=== PATIENT | female | born 1985 | race Caucasian/White ===

== ENCOUNTER 2016-04-23 12:13 | Emergency (ER) | payer SELFPAY ==
[~2016-04-23] VITALS: Ht 160 cm; Wt 56.6 kg
[~2016-04-23 12:13] MED LIST: CLON-365 PO; FLUO40CA9 PO
[2016-04-23] MEDS ORDERED: IBUPROFEN 200 MG TABLET ONE (14:57)
[2016-04-23] MEDS ORDERED: IBUPROFEN 200 MG TABLET PO ONE (15:30)
[2016-04-23 16:21] VITALS: BP 116/77
== END 2016-04-23 16:45 | disposition home or self-care (01) ==
LOC: ED 13:56
DX: H10.33 Unspecified acute conjunctivitis, bilateral (principal); N30.00 Acute cystitis without hematuria; K05.10 Chronic gingivitis, plaque induced; K02.9 Dental caries, unspecified
CPT/HCPCS: 81001; 87077; 87086; 87186; 99284

== ENCOUNTER 2016-06-15 15:55 | Emergency (ER) | payer SELFPAY ==
[~2016-06-15] VITALS: Ht 160 cm; Wt 58.7 kg
[2016-06-15] MEDS ORDERED: SODIUM CHLORIDE 0.9% 1,000ML IVBOLUS ONE (16:30)
[2016-06-15] MEDS ORDERED: SODIUM CHLORIDE FLUSH 10ML SYR IVF ONE (16:30)
[2016-06-15 16:57] LABS: BLOOD UREA NITROGEN 11 mg/dL (7-18)
[2016-06-15] MEDS ORDERED: ACETAMINOPHEN 500 MG TABLET PO ONE (19:30)
[2016-06-15] MEDS ORDERED: ACETAMINOPHEN 500 MG TABLET ONE (19:39)
[2016-06-15 21:18] VITALS: BP 112/74
[2016-06-15] MEDS ORDERED: SULFAMETH./TRIMETHOPRIM DS 800MG/160MG TABLET ONE (22:43)
[2016-06-15] MEDS ORDERED: SULFAMETH./TRIMETHOPRIM DS 800MG/160MG TABLET PO ONE (23:00)
== END 2016-06-15 22:55 | disposition home or self-care (01) ==
LOC: ED 21:27
DX: M54.9 Dorsalgia, unspecified (principal); N30.90 Cystitis, unspecified without hematuria; Z88.0 Allergy status to penicillin; Z88.1 Allergy status to other antibiotic agents
CPT/HCPCS: 36415; 80048; 81001; 82040; 84703; 85025; 87086; 93005

== ENCOUNTER 2016-09-11 16:08 | Emergency (ER) | payer OTHER ==
[~2016-09-11] VITALS: Ht 170.2 cm; Wt 68.4 kg
[2016-09-11 17:16] VITALS: BP 106/72
[2016-09-11] MEDS ORDERED: SODIUM CHLORIDE 0.9% 1,000ML IVBOLUS ONE (17:30)
[2016-09-11 17:59] LABS: BLOOD UREA NITROGEN 13 mg/dL (7-18)
== END 2016-09-11 18:54 | disposition home or self-care (01) ==
LOC: ED 18:29
DX: F41.1 Generalized anxiety disorder (principal); F15.10 Other stimulant abuse, uncomplicated; F17.210 Nicotine dependence, cigarettes, uncomplicated; Z88.0 Allergy status to penicillin; Z88.1 Allergy status to other antibiotic agents
CPT/HCPCS: 36415; 80048; 82040; 99284; J7030

== ENCOUNTER 2017-06-09 06:26 | Emergency (ER) | payer SELFPAY ==
[~2017-06-09] VITALS: Ht 160 cm; Wt 66.9 kg
[2017-06-09 06:28] VITALS: BP 114/74
[2017-06-09] MEDS ORDERED: DEXAMETHASONE 4 MG TABLET ONE (07:20)
[2017-06-09] MEDS ORDERED: DEXAMETHASONE 4 MG TABLET PO ONE (07:30)
== END 2017-06-09 07:39 | disposition home or self-care (01) ==
LOC: ED 07:33
DX: J02.0 Streptococcal pharyngitis (principal); F32.9 Major depressive disorder, single episode, unspecified; F43.10 Post-traumatic stress disorder, unspecified
CPT/HCPCS: 99283

== ENCOUNTER 2018-09-07 00:07 | Emergency (ER) | payer SELFPAY ==
[~2018-09-07] VITALS: Ht 160 cm; Wt 75.0 kg
[~2018-09-07 00:07] MED LIST changes: -CLON-365 PO; +CLON1TAB11 PO
[2018-09-07 00:17] VITALS: BP 115/77
== END 2018-09-07 00:50 | disposition home or self-care (01) ==
LOC: ED 00:39
DX: F15.10 Other stimulant abuse, uncomplicated (principal); F41.1 Generalized anxiety disorder; F32.9 Major depressive disorder, single episode, unspecified; F43.10 Post-traumatic stress disorder, unspecified; F17.200 Nicotine dependence, unspecified, uncomplicated; Z98.51 Tubal ligation status; Z98.890 Other specified postprocedural states
CPT/HCPCS: 99283

== ENCOUNTER 2019-05-16 15:08 | Emergency (ER) | payer SELFPAY ==
[~2019-05-16] VITALS: Ht 160 cm; Wt 69.9 kg
[2019-05-16 15:10] VITALS: BP 118/76
[2019-05-16] MEDS ORDERED: METHOCARBAMOL 750 MG TABLET PO ONE (15:30)
[2019-05-16] MEDS ORDERED: KETOROLAC 30 MG/1 ML IM ONE (15:30)
[2019-05-16] MEDS ORDERED: KETOROLAC 30 MG/1 ML ONE (15:32)
[2019-05-16] MEDS ORDERED: METHOCARBAMOL 750 MG TABLET ONE (15:32)
--- NOTE | 2019-05-16 15:41 | NUR ---
C/O BILAT LEG HEAVINESS, TINGLING - STARTED DECEMBER 2018 AFTER GETTING THE FLU. "MY NECK GETS KNOTS IN IT"; "I USE ICY "LT ARM MUSCLE SPASM - STARTED IN MAR 2019; WORSENED WHILE IN JAIL. TOOK IBUPROFEN 800MG AT 1200.
[2019-05-16] MEDS ORDERED: IBUP-1222 PO (15:48)
--- NOTE | 2019-05-16 16:03 | NUR ---
PT MEDICATED PER EMAR. PT ABLE TO MOVE, STAND, LAY ON BED W/OUT APPARENT DIFFICULTY.
== END 2019-05-16 16:14 | disposition home or self-care (01) ==
LOC: ED 16:00
DX: M54.5 Low back pain (principal); F17.200 Nicotine dependence, unspecified, uncomplicated
CPT/HCPCS: 72110; 96372; 99283; J1885; J7512